=== PATIENT | male | born 1985 | race Caucasian/White ===

== ENCOUNTER 2020-08-31 17:27 | Observation (INO) ==
[2020-08-31] MEDS: DilTIAZem 50 MG/50 ML IV.SOLN IVC SCH ×2 (18:10→23:27)
[2020-08-31 18:11] LABS: Basophils % 0.2 %; Eosinophils # 0.1 K/mcL (0.0-0.6); Eosinophils % 1.5 %; Hematocrit 39.7 % (37.5-50.1); Hemoglobin 13.6 g/dL (12.9-16.9); Immature Granulocytes % 0.2 % (0-4); Lymphocytes # 2.8 K/mcL (0.6-4.6); Lymphocytes % 43.3 %; Mean Corpuscular HGB Conc 34.3 g/dL (31.6-35.5); Mean Corpuscular Hemoglobin 31.1 pg (28.0-33.3); Mean Corpuscular Volume 90.8 fL (83.0-100.0); Mean Platelet Volume 10.8 fL (9.4-12.4); Monocytes # 0.6 K/mcL (0.0-1.3); Monocytes % 8.7 %; Platelet Count 193 K/mcL (140-400); Red Blood Count 4.37 M/mcL (4.19-5.50); Red Cell Distribution Width 12.2 % (11.5-14.5); Segmented Neutrophils % 46.1 %; White Blood Count 6.5 K/mcL (4.3-11.1)
[2020-08-31 18:52] LABS: Alanine Aminotransferase 23 Units/L (7-52); Albumin 4.7 g/dL (3.5-5.7); Albumin/Globulin Ratio 1.7 (1.1-2.2); Alkaline Phosphatase 60 Units/L (34-104); Aspartate Amino Transferase 33 Units/L (13-39); BUN/Creatinine Ratio 19 (6-26); Bilirubin,Total 0.3 mg/dL (0.3-1.0); Blood Urea Nitrogen 21 mg/dL (6-20); Calcium 9.7 mg/dL (8.6-10.3); Carbon Dioxide 28 mEq/L (23-29); Chloride 103 mEq/L (98-107); Globulin 2.8 g/dL (2.4-3.5); Glucose 97 mg/dL (70-105); Osmolality,Calculated 291 (280-300); Potassium 5.2 mEq/L (3.5-5.1); Sodium 139 mEq/L (136-145); Thyroid Stimulating Hormone 1.193 mcIU/mL (0.340-5.600); Total Protein 7.5 g/dL (6.4-8.9); Troponin I < 0.03 ng/mL (< 0.04); Valproate < 4 mcg/mL (50-100); eGFR For African Americans > 60 (> 60); eGFR For Non-African Americans > 60 (> 60)
[2020-08-31] MEDS ORDERED: Ondansetron ODT 4 MG TAB.RAPDIS SL PRN (19:07)
[2020-08-31] MEDS ORDERED: Perflutren Lipid Microsphere 1.3 ML in 0.9 % Sodium Chloride 8.7 ML IVP PRN (19:09)
[2020-08-31] MEDS ORDERED: Isovue-370 500 ML BOTTLE IVP ONE (19:39)
[2020-08-31] MEDS ORDERED: *HR* Heparin 5,000 UNIT/ML VIAL IVP ONE (20:21)
[2020-08-31] MEDS ORDERED: *HR* Heparin 5,000 UNIT/ML VIAL IVP PRN ×2 (20:21)
[2020-08-31] MEDS ORDERED: Heparin 25,000UNIT/250ML 1/2NS 25,000 UNIT/250 ML IV.SOLN IVC SCH (20:30)
[2020-08-31] MEDS: *HR* LORazepam 1 MG TABLET PO SCH (21:09)
[2020-08-31 21:12] LABS: Hematocrit 40.3 % (37.5-50.1); Hemoglobin 13.4 g/dL (12.9-16.9); Mean Corpuscular HGB Conc 33.3 g/dL (31.6-35.5); Mean Corpuscular Hemoglobin 29.3 pg (28.0-33.3); Mean Corpuscular Volume 88.2 fL (83.0-100.0); Platelet Count 201 K/mcL (140-400); Red Blood Count 4.57 M/mcL (4.19-5.50); Red Cell Distribution Width 12.1 % (11.5-14.5); White Blood Count 6.8 K/mcL (4.3-11.1)
[2020-08-31 21:19] LABS: Heparin anti-factor XA UFH < 0.04 IU/mL (0.30-0.70)
[2020-08-31 21:20] LABS: INR 1.1; Prothrombin Time 12.6 Seconds (9.4-12.1)
[2020-09-01 05:17] LABS: Hematocrit 42.4 % (37.5-50.1); Hemoglobin 13.8 g/dL (12.9-16.9); Mean Corpuscular HGB Conc 32.5 g/dL (31.6-35.5); Mean Corpuscular Hemoglobin 30.2 pg (28.0-33.3); Mean Corpuscular Volume 92.8 fL (83.0-100.0); Mean Platelet Volume 10.4 fL (9.4-12.4); Platelet Count 178 K/mcL (140-400); Red Blood Count 4.57 M/mcL (4.19-5.50); Red Cell Distribution Width 12.4 % (11.5-14.5)
[2020-09-01 05:18] LABS: INR 1.1; Prothrombin Time 12.5 Seconds (9.4-12.1)
[2020-09-01 05:19] LABS: Heparin anti-factor XA UFH 0.3 IU/mL (0.30-0.70)
[2020-09-01 05:42] LABS: BUN/Creatinine Ratio 21 (6-26); Blood Urea Nitrogen 22 mg/dL (6-20); Calcium 9.6 mg/dL (8.6-10.3); Carbon Dioxide 28 mEq/L (23-29); Chloride 103 mEq/L (98-107); Glucose 101 mg/dL (70-105); Magnesium 2.1 mg/dL (1.6-2.6); Osmolality,Calculated 289 (280-300); Sodium 138 mEq/L (136-145); eGFR For African Americans > 60 (> 60); eGFR For Non-African Americans > 60 (> 60)
[2020-09-01] MEDS: *HR* LORazepam 1 MG TABLET PO SCH (08:30)
[2020-09-01] MEDS ORDERED: Metoprolol XL (24 HR) Succ 25 MG TAB.ER.24H PO SCH (09:00)
[2020-09-01 10:49] VITALS: BP 117/76
[2020-09-01] MEDS ORDERED: DilTIAZem CD (24hr) 120 MG CAP.ER.24H PO SCH (12:15)
[2020-09-01] MEDS ORDERED: DilTIAZem SR (12hr) 60 MG CAP.ER.12H PO SCH (21:00)
== END 2020-09-01 14:45 | disposition home or self-care (01) ==
LOC: 2ANU 17:27 → EMEROOARM 17:27 → 2ANU 20:26
PROVIDERS: ADMIT Internal Medicine; ATTEND Internal Medicine